=== PATIENT | female | born 1955 | race African-American/Black ===

== ENCOUNTER 2022-01-07 14:52 | Emergency (ER) | payer MEDICARE, OTHER ==
[2022-01-07] MEDS ORDERED: XOLAIR75 MG/0.5 SQ (16:13)
[2022-01-07 16:14] LABS: BASO # 0.03 K/mm3 (0.02-0.10); EOS # 0.19 K/mm3 (0.04-0.40); EOS % 3.7 % (1.0-5.0); HEMATOCRIT 44.2 % (37.0-47.0); HEMOGLOBIN 14.4 g/dL (12.5-16.0); LYMPH# 1.97 K/mm3 (1.50-4.00); MEAN CELL VOLUME 85 fl (78-100); MEAN CORPUSCULAR HEMOGLOBIN 28 pg (27-31); MEAN CORPUSCULAR HGB CONC 33 g/dL (33-37); MEAN PLATELET VOLUME 9.8 fl (7.4-10.4); MONO # 0.47 K/mm3 (0.20-0.80); NEU # 2.53 K/mm3 (1.40-6.50); PLATELET COUNT 197 K/mm3 (130-400); RED BLOOD COUNT 5.19 M/mm3 (4.10-5.30); WHITE BLOOD COUNT 5.2 K/mm3 (4.8-10.8)
[2022-01-07] MEDS ORDERED: XOLAIR150 MG/1 M SQ (16:14)
[2022-01-07] MEDS ORDERED: IPRATROPIUM BROM3 M1 IH (16:15)
[2022-01-07] MEDS ORDERED: RT SPIRIVA INH18 MCG IH (16:15)
[2022-01-07] MEDS ORDERED: PROAIR HFA0.09 MG/AC IH (16:17)
[2022-01-07] MEDS ORDERED: RT ADVAIR HFA 2312 G IH (16:19)
[2022-01-07] MEDS ORDERED: FLONASE ALLERG9.9 ML NS (16:23)
[2022-01-07] MEDS ORDERED: ESCITALOPRAM10 MG PO (16:24)
[2022-01-07] MEDS ORDERED: ROPINIROLE HYD0.5 MG (16:27)
[2022-01-07] MEDS ORDERED: SYNTHROID175 MCG PO (16:29)
[2022-01-07] MEDS ORDERED: LIPITOR 10M10 MG/TAB PO (16:30)
[2022-01-07] MEDS ORDERED: MICARDIS HCT 121 TAB PO (16:32)
[2022-01-07] MEDS ORDERED: ZYRTEC ALLERGY10 MG PO (16:33)
[2022-01-07] MEDS ORDERED: ST. JOSEPH ASPI81 MG PO (16:34)
[2022-01-07 16:58] LABS: ALBUMIN 4.3 g/dL (3.4-4.8); POTASSIUM 4.1 mmol/L (3.5-5.1)
[2022-01-07 16:59] LABS: CALCIUM 10.2 mg/dL (8.3-10.5)
[2022-01-07 17:00] LABS: TOTAL PROTEIN 7.9 g/dL (6.2-8.1)
[2022-01-07 17:02] LABS: TOTAL BILIRUBIN 0.5 mg/dL (0.2-1.2)
[2022-01-07 17:59] LABS: URINE APPEARANCE CLEAR; URINE COLOR YELLOW
[2022-01-07 18:00] LABS: URINE BILIRUBIN NEGATIVE (NEGATIVE); URINE BLOOD NEGATIVE (NEGATIVE); URINE GLUCOSE NEGATIVE (NEGATIVE); URINE KETONE NEGATIVE (NEGATIVE); URINE LEUKOCYTE ESTERASE TRACE (NEGATIVE); URINE MUCUS PRESENT (NOT PRESENT); URINE NITRATE NEGATIVE (NEGATIVE); URINE PROTEIN(semi-quant) TRACE (NEGATIVE); URINE UROBILINOGEN NORMAL (NORMAL); URINE WBC 0-1 /hpf (0-3)
[2022-01-07] MEDS ORDERED: LEVOTHYROXINE150 MCG PO (18:09)
[2022-01-07 18:32] VITALS: BP 128/91
== END 2022-01-07 18:26 | disposition home or self-care (01) ==
LOC: ED 14:52
PROVIDERS: Physician Assistant
DX: E03.9 Hypothyroidism, unspecified (principal); R41.0 Disorientation, unspecified; Z79.890 Hormone replacement therapy

== ENCOUNTER → 2022-01-29 | Outpatient (CLI) | payer MEDICARE, OTHER ==
[~2022-01-29] MED LIST: ESCITALOPRAM10 MG PO; FLONASE ALLERG9.9 ML NS; IPRATROPIUM BROM3 M1 IH; LEVOTHYROXINE150 MCG PO; LIPITOR 10M10 MG/TAB PO; MICARDIS HCT 121 TAB PO; PROAIR HFA0.09 MG/AC IH; ROPINIROLE HYD0.5 MG; RT ADVAIR HFA 2312 G IH; RT SPIRIVA INH18 MCG IH; ST. JOSEPH ASPI81 MG PO; SYNTHROID175 MCG PO; XOLAIR150 MG/1 M SQ; XOLAIR75 MG/0.5 SQ; ZYRTEC ALLERGY10 MG PO
== END ==
LOC: LAB 13:54
DX: E03.9 Hypothyroidism, unspecified (principal)

== ENCOUNTER → 2022-02-16 | Outpatient (CLI) | payer MEDICARE, OTHER ==
[2022-02-16 16:26] LABS: BASO # 0.04 K/mm3 (0.02-0.10); EOS # 0.21 K/mm3 (0.04-0.40); EOS % 4.5 % (1.0-5.0); HEMATOCRIT 42.9 % (37.0-47.0); HEMOGLOBIN 14.3 g/dL (12.5-16.0); LYMPH# 1.94 K/mm3 (1.50-4.00); MEAN CELL VOLUME 84 fl (78-100); MEAN CORPUSCULAR HEMOGLOBIN 28 pg (27-31); MEAN CORPUSCULAR HGB CONC 33 g/dL (33-37); MEAN PLATELET VOLUME 9.8 fl (7.4-10.4); NEU # 2.06 K/mm3 (1.40-6.50); PLATELET COUNT 177 K/mm3 (130-400); RED BLOOD COUNT 5.11 M/mm3 (4.10-5.30); RED CELL DISTRIBUTION WIDTH 13.2 % (11.5-14.5); WHITE BLOOD COUNT 4.7 K/mm3 (4.8-10.8)
[2022-02-16 16:36] LABS: ALBUMIN 4.4 g/dL (3.4-4.8); POTASSIUM 4.2 mmol/L (3.5-5.1)
[2022-02-16 16:37] LABS: CALCIUM 9.8 mg/dL (8.3-10.5)
[2022-02-16 16:38] LABS: TOTAL PROTEIN 7.9 g/dL (6.2-8.1)
[2022-02-16 16:40] LABS: TOTAL BILIRUBIN 0.6 mg/dL (0.2-1.2)
[2022-02-16 16:45] LABS: MAGNESIUM 1.73 mg/dL (1.60-2.60)
[2022-02-16 17:38] LABS: ERYTHROCYTE SEDIMENTATION RATE 20 mm/hr (0-30)
== END ==
LOC: LAB 16:12
PROVIDERS: Internal Medicine
DX: J44.9 Chronic obstructive pulmonary disease, unspecified (principal); K90.9 Intestinal malabsorption, unspecified; R55 Syncope and collapse; J45.909 Unspecified asthma, uncomplicated; I10 Essential (primary) hypertension; F90.0 Attention-deficit hyperactivity disorder, predominantly inattentive type; E03.9 Hypothyroidism, unspecified; R73.03 Prediabetes

== ENCOUNTER → 2022-07-06 | Outpatient (CLI) | payer MEDICARE, OTHER ==
[2022-07-06 14:53] LABS: BASO # 0.03 K/mm3 (0.02-0.10); EOS # 0.19 K/mm3 (0.04-0.40); EOS % 4.4 % (1.0-5.0); HEMATOCRIT 44.8 % (37.0-47.0); HEMOGLOBIN 14.9 g/dL (12.5-16.0); LYMPH# 1.89 K/mm3 (1.50-4.00); MEAN CELL VOLUME 87 fl (78-100); MEAN CORPUSCULAR HEMOGLOBIN 29 pg (27-31); MEAN CORPUSCULAR HGB CONC 33 g/dL (33-37); MEAN PLATELET VOLUME 10.2 fl (7.4-10.4); MONO # 0.29 K/mm3 (0.20-0.80); NEU # 1.94 K/mm3 (1.40-6.50); PLATELET COUNT 175 K/mm3 (130-400); RED BLOOD COUNT 5.17 M/mm3 (4.10-5.30); WHITE BLOOD COUNT 4.3 K/mm3 (4.8-10.8)
[2022-07-06 14:58] LABS: ALBUMIN 4.5 g/dL (3.4-4.8)
[2022-07-06 14:59] LABS: POTASSIUM 4.4 mmol/L (3.5-5.1)
[2022-07-06 15:00] LABS: CALCIUM 10.1 mg/dL (8.3-10.5)
[2022-07-06 15:01] LABS: TOTAL PROTEIN 7.8 g/dL (6.2-8.1)
[2022-07-06 15:03] LABS: TOTAL BILIRUBIN 0.5 mg/dL (0.2-1.2)
== END ==
LOC: LAB 14:27
PROVIDERS: Internal Medicine
DX: Z12.39 Encounter for other screening for malignant neoplasm of breast (principal); J45.909 Unspecified asthma, uncomplicated; E03.9 Hypothyroidism, unspecified; K90.9 Intestinal malabsorption, unspecified; I10 Essential (primary) hypertension; R73.03 Prediabetes; R55 Syncope and collapse; F90.0 Attention-deficit hyperactivity disorder, predominantly inattentive type; J44.9 Chronic obstructive pulmonary disease, unspecified; E53.8 Deficiency of other specified B group vitamins; E55.9 Vitamin D deficiency, unspecified; G47.33 Obstructive sleep apnea (adult) (pediatric); G25.81 Restless legs syndrome

== ENCOUNTER → 2023-01-29 | Outpatient (CLI) | payer MEDICARE, OTHER | LOC: LAB 15:47 | DX: Z00.00 Encounter for general adult medical examination without abnormal findings (principal); Z12.11 Encounter for screening for malignant neoplasm of colon; Z23 Encounter for immunization; I10 Essential (primary) hypertension; R73.03 Prediabetes; R55 Syncope and collapse; F90.0 Attention-deficit hyperactivity disorder, predominantly inattentive type; J44.9 Chronic obstructive pulmonary disease, unspecified; J45.909 Unspecified asthma, uncomplicated; E03.9 Hypothyroidism, unspecified; E53.8 Deficiency of other specified B group vitamins; E55.9 Vitamin D deficiency, unspecified; K90.9 Intestinal malabsorption, unspecified; G47.33 Obstructive sleep apnea (adult) (pediatric); G25.81 Restless legs syndrome; C50.912 Malignant neoplasm of unspecified site of left female breast; J30.2 Other seasonal allergic rhinitis ==

== ENCOUNTER → 2024-01-06 | Outpatient (CLI) | payer MEDICARE, OTHER | LOC: LAB 16:28 | DX: Z12.11 Encounter for screening for malignant neoplasm of colon (principal); Z11.59 Encounter for screening for other viral diseases; E03.9 Hypothyroidism, unspecified; I10 Essential (primary) hypertension; K90.9 Intestinal malabsorption, unspecified; E78.2 Mixed hyperlipidemia; R73.03 Prediabetes ==

== ENCOUNTER → 2024-01-21 | Outpatient (CLI) | payer MEDICARE, OTHER | LOC: RAD 15:33 | DX: M16.0 Bilateral primary osteoarthritis of hip (principal) ==